=== PATIENT | female | born 1980 | race Hispanic/Latino ===

== ENCOUNTER 2024-07-23 19:53 | Emergency (ER) | payer OTHER ==
[~2024-07-23] VITALS: Ht 154.9 cm; Wt 47.6 kg
[~2024-07-23 19:53] MED LIST: AZITHROMYCIN250 MG PO; PREDNISONE20 MG PO; VENTOLIN HFA18 GM INH
[2024-07-23 20:07] VITALS: PULSE 111; RESP 18; TEMP 98.6
[2024-07-23] MEDS ORDERED: BELLADONNA ALK/PHENOBARBITAL 5 ML UDC PO ONE (20:30)
[2024-07-23] MEDS ORDERED: DEXAMETHASONE SOD PHOS 10 MG/1 ML VIAL IM ONE (20:30)
[2024-07-23 20:54] VITALS: PULSE 78; RESP 18; O2SAT 98
[2024-07-23] MEDS: MAGNESIUM/ALUMINUM/SIMETHICONE 30 ML UDC PO STA (20:54)
[2024-07-23] MEDS: LIDOCAINE VISC 2% SOLN 15 ML UDC PO STA (20:54)
[2024-07-23 20:57] VITALS: PULSE 78; RESP 18; O2SAT 98
[2024-07-23] MEDS: ALBUTEROL/IPRATROPIUM 3 ML NEB NEB STA (20:57)
== END 2024-07-23 21:59 | disposition home or self-care (01) ==
LOC: ER 20:06
DX: T49.2X1A Poisoning by local astringents and local detergents, accidental (unintentional), initial encounter (principal); R05.9 Cough, unspecified; R01.1 Cardiac murmur, unspecified
CPT/HCPCS: 71046; 94640; 94799; 99283; J1100

== ENCOUNTER 2024-12-09 19:13 | Emergency (ER) | payer OTHER ==
[~2024-12-09] VITALS: Ht 154.9 cm; Wt 63.5 kg
[2024-12-09 19:29] VITALS: PULSE 71; RESP 16; TEMP 98.6
[2024-12-09] MEDS ORDERED: MEDROL4 M2 PO (20:29)
[2024-12-09 20:47] VITALS: BP 111/84; PULSE 75; RESP 16; O2SAT 100
[2024-12-09] MEDS: DEXAMETHASONE SOD PHOS 10 MG/1 ML VIAL IM ONE (20:47)
== END 2024-12-09 20:48 | disposition home or self-care (01) ==
LOC: ER 20:24
DX: J30.2 Other seasonal allergic rhinitis (principal); R01.1 Cardiac murmur, unspecified
CPT/HCPCS: 99283; J1100